=== PATIENT | female | born 1995 | race Caucasian/White ===

== ENCOUNTER 2021-03-27 20:40 | Emergency (ER) | payer OTHER ==
--- NOTE | 2021-03-27 22:10 | ER ---
Nurse's Notes [facility] Name: Salvador Sutherland Age: 25 yrs Sex: Female : 1995 Arrival Date: 03/27/2021 Time: 20:41 Bed Waiting Private MD: Diagnosis: ED Course: 03/27 20:41 Patient arrived in ED. do 22:09 Patient's name was called from ER lobby. No response. Unable to locate patient. Will lp1 disposition as left without being seen by a provider. Administered Medications: No medications were administered Outcome: 22:09 Patient left the ED. lp1 Signatures: Adrianne Jesus RN RN lp1 Denise Love do
== END 2021-03-27 22:09 | disposition left against medical advice (07) ==
LOC: ER 20:40
DX: Z02.9 Encounter for administrative examinations, unspecified (principal)